=== PATIENT | female | born 1925 | race Caucasian/White ===

== ENCOUNTER → 2016-11-20 | Day surgery (SDC) | payer MEDICARE ==
[~2016-11-20] MED LIST: ASPI-110 PO; BUPIVACAINE/EPINEPHRINE 0.5% PF 30 ML VIAL ONE; CALC0.25 PO; COUM2TAB PO; COUM4TAB PO; COUM6TAB PO; FURO1TAB60 PO; INSULIN HUMAN REGULAR 1,000 UNITS/10 ML VIAL SQ PRN; LACTATED RINGER'S 1000 ML IV SCH; LEVO.05 PO; LIPI10TA PO; METO50TA PO; METOPROLOL TARTRATE 25 MG TAB PO PRN; METOPROLOL TARTRATE 50 MG TAB PO ONE; PLAV75TA29 PO; PRIL20CA9 PO; PROC5TAB PO; PROPOFOL 200 MG/20 ML AMP IV ONE; SODIUM CHLORID 0.9% 500 ML IV SCH; SODIUM CHLORIDE 0.9% INJ 100 ML ONE; ceFAZolin 1,000 MG/NS 100 ML IV SCH; ceFAZolin INJ 1,000 MG VIAL ONE
[2016-11-20 12:04] LABS: AUTOMATED NEUTROPHIL # 7.2 TH/MM3 (1.8-7.7); BASOPHIL # 0.1 TH/MM3 (0-0.2); BASOPHIL % 0.9 % (0.0-2.0); EOSINOPHIL # 0.1 TH/MM3 (0-0.4); EOSINOPHIL % 0.9 % (0.0-4.0); HEMATOCRIT 42.7 % (35.0-46.0); HEMO FLAGS DIFF FINAL; LYMPH % 8.9 % (9.0-44.0); LYMPHOCYTE # 0.8 TH/MM3 (1.0-4.8); MEAN CELL VOLUME 95.7 FL (80.0-100.0); MEAN CORPUSCULAR HGB CONC 33.5 % (32.0-36.0); MONO % 13.4 % (0.0-8.0); NEUT % 75.9 % (16.0-70.0); PLATELET COUNT 229 TH/MM3 (150-450); RED BLOOD COUNT 4.46 MIL/MM3 (4.00-5.30); RED CELL DISTRIBUTION WIDTH 16.4 % (11.6-17.2); WHITE BLOOD COUNT 9.5 TH/MM3 (4.0-11.0)
[2016-11-20 12:09] VITALS: BP 155/79; PULSE 109; RESP 18; TEMP 97.9; O2SAT 96
[2016-11-20 12:13] LABS: APTT (PATIENT) 23.2 SEC (24.3-30.1); INTERNATIONAL NORMALIZED RATIO 1.1 RATIO; PROTHROMBIN TIME - PATIENT 11.8 SEC (9.8-11.6)
[2016-11-20 12:25] LABS: BICARBONATE 17.7 MEQ/L (21.0-32.0); POTASSIUM 5.9 MEQ/L (3.5-5.1)
[2016-11-20 17:00] VITALS: BP 120/69; PULSE 101; RESP 16; TEMP 97.5; O2SAT 98
--- NOTE | 2016-11-21 15:19 | MP ---
cc: GEOFF ANTUNEZ M.D. DATE OF SURGERY: 11/20/2016 PREOPERATIVE DIAGNOSIS 1. Chronic kidney disease. 2. Non-used peritoneal dialysis catheter. POSTOPERATIVE DIAGNOSIS 1. Chronic kidney disease. 2. Non-used peritoneal dialysis catheter. OPERATIVE PROCEDURE Removal of non-used peritoneal dialysis catheter. SURGEON Geoff Antunez CONTINUOUS TOWEL ROLLER ESME Contreras ANESTHESIA Local MAC. DESCRIPTION OF OPERATIVE PROCEDURE With the patient in the supine position and under IV sedation the abdomen was prepped with Betadine and draped in a sterile fashion. Following a protocol timeout, the skin and subcutaneous tissue surrounding the old PD catheter placement scar was infiltrated with 0.5% Marcaine with epinephrine. The scar was re-incised, dissection continued sharply through the underlying sclerotic tissue. The intramuscular catheter cuff was mobilized free of surrounding adhesions and the peritoneal portion of the catheter retracted, removed entirely. The subcutaneous catheter cuff was mobilized free of adhesions and the subcutaneous portion of the catheter removed as well. Strict hemostasis was assured. The incision was closed with continuous subcuticular 5-0 Monocryl, reinforced with Steri-Strips and covered with sterile gauze. Instrument, needle, sponge count correct x2. No operative complications. The patient returned to the recovery room in stable condition having tolerated the procedure well. Geoff Antunez MD JTS/LATOSHA /9:18 PM /3:12 PM
== END | disposition home or self-care (01) ==
LOC: HSDC 10:53
PROVIDERS: ATTEND Surgery Vascular Surgery
DX: T82.898A Other specified complication of vascular prosthetic devices, implants and grafts, initial encounter (principal); N18.6 End stage renal disease; I12.0 Hypertensive chronic kidney disease with stage 5 chronic kidney disease or end stage renal disease
CPT/HCPCS: 00730; 49422; 80048; 85025; 85610; 85730; J0690; J7120